=== PATIENT | male | born 1960 | race Caucasian/White ===

== ENCOUNTER → 2017-10-05 | Outpatient (CLI) | payer BC, SELFPAY | PROVIDERS: Family Provider Family Medicine; Visit Provider Family Medicine | DX: I10 Essential (primary) hypertension (principal) | CPT/HCPCS: 73030 ==

== ENCOUNTER 2025-05-30 09:06 | Day surgery (SDC) | payer MEDICARE, SELFPAY ==
--- NOTE | 2025-05-30 08:24 | P.HP_ITS ---
HPI HPI HPI: Patient is a 64-year-old male who presents for colonoscopy. He underwent initial screening colonoscopy with Dr. Kearney on 11/19/18. At that time he had reported some occasional spotting of blood on the tissue from internal hemorrhoids. No family history of colon cancer. Colonoscopy revealed dimin utive colon polyps x 3. Pathology revealed fragments of tubular adenoma in the ascending colon at which point 2 polyps were removed and tubular adenoma in the sigmoid colon. 5-year follow-up colonoscopy was recommended. . [facility] Disclaimer: The information contained in this section may have been updated after the patient was seen, as this information can be updated by other users. Medical History Anxiety HTN (hypertension) Surgical History (Updated 05/30/25 @ 09:26 by Suzette Argeullo RN) History of hernia repair Family History (Updated 05/30/25 @ 09:26 by Suzette Arguello RN) Other Family history of acute congestive heart failure Social History (Updated 05/30/25 @ 09:46 by Carlos Epstein CRNA) Smoking Status: Never smoker alcohol intake: current substance use type: denies use current occupational status: retired Travel in the last 8 weeks?: None caffeine: Yes Have you lived/traveled outside [place] in past 30 days?: No Contact w/someone who lives/traveled outside [place] past 30 days?: No Exposure to someone with infectious disease in past 14 days?: No Do you have a fever (greater than 100.4 F or 38 C)?: No Have you tested positive for COVID-19?: No Exposed to someone with COVID-19 in past 14 days?: No Do you have a sore throat?: No Do you have a cough?: No Do you have any weakness?: No Are you experiencing any nausea/vomitting?: No Do you have any diarrhea?: No Are you experiencing any unusual bleeding?: No Do you have any muscle aches/pain?: No Do you have any abdominal pain?: No Are you experiencing loss of taste or smell?: No Meds Home Medications and Allergies Home Medications ?Medication ?Instructions ?Recorded ?Confirmed ?Type lisinopril 20 1 tab PO DAILY 05/30/2505/16 History mg-hydrochlorothiazide 12.5 mg tablet sertraline 100 mg tablet (Zoloft) 100 mg PO DAILY 05/1605/30/25 History New Prescriptions to Start Prescriptions: Allergies Allergy/AdvReac Type Severity Reaction Status Date / Time No Known Allergies Allergy Verified 05/30/25 09:27 Exam Constitutional Constitutional: no acute distress *Routine HEENT Exam Head: Present normocephalic Eye: Present EOMI and PERRL ENT: Present mucous membranes moist *Routine Neck Exam Neck: Present supple; Absent lymphadenopathy *Routine Respiratory Exam Respiratory: Present CTA bilaterally *Routine Cardiovascular Exam Cardiovascular: Present RRR *Routine Abdominal Exam Abdominal: Present soft and normoactive bowel sounds; Absent tenderness *Routine Rectal Exam Rectal:: deferred *Routine Genitalia Exam Genitalia:: deferred *Routine Extremities Exam Extremities: Absent cyanosis, clubbing or edema *Routine Skin Exam Skin: Present warm; Absent rash *Routine Neurological Exam Neurological: Present alert and oriented X3 Assessment and Plan *Assessment and plan (1) Tubular adenoma of colon: Status: Acute Category: Medical Code(s): D12.6 - Benign neoplasm of colon, unspecified Plan Colonoscopy
[2025-05-30 09:20] VITALS: BMI 29.7
[2025-05-30] MEDS: LACTATED RINGERS 1000ML 1,000 ML 50 ML IV (09:23)
[2025-05-30 09:34] VITALS: BP 160/96; PULSE 71; RESP 17; TEMP 36.2; O2SAT 98
--- NOTE | 2025-05-30 09:46 | P.PNANES_ITS ---
[facility] Disclaimer: The information contained in this section may have been updated after the patient was seen, as this information can be updated by other users. Medical History Anxiety HTN (hypertension) Surgical History (Updated 05/30/25 @ 09:26 by Suzette Arguello RN) History of hernia repair Family History (Updated 05/30/25 @ 09: by Suzette Arguello RN) Other Family history of acute congestive heart failure Social History (Updated 05/30/25 @ : by Suzette Arguello RN) Smoking Status: Never smoker alcohol intake: current substance use type: denies use current occupational status: retired Travel in the last 8 weeks?: None caffeine: Yes [facility] Anesthesia Checklist Patient Identification Patient Identification: Arm Band Structural Data Admitted From: Home Planned Operative Procedure/s: Colonoscopy Consent for Planned Operative Procedure(s) Verified: Yes Verified Documents: Surgical Consent and History and Physical NPO Status Verified Time NPO: 00:00 Additional verifications Anesthesia Reactions: No Airway Assessment Mallampati Score:: Class II C-Spine Mobility Assessed: Yes TMJ Mobility Assessed: Yes Dentition: Good Dentition Neurological Assessment Level of Consciousness: Awake, Alert and Appropriate Anesthesia Plan Anesthesia Risk discussed: Yes Anesthesia Plan: Verified ASA Class: II Anesthesia Type: MAC
[2025-05-30 11:07] VITALS: BP 95/60; PULSE 71; RESP 15; TEMP 36.2; O2SAT 92
--- NOTE | 2025-05-30 11:07 | P.PCN_ITS ---
Procedure: Date: 05/30/25 Patient Date of :: 1960 Procedure Performed:: Colonoscopy to terminal ileum with polypectomy using snare Indications:: Patient is a 64-year-old male who presents for colonoscopy. He underwent initial screening colonoscopy with Dr. Kearney on 11/19/18. At that time he had reported some occasional spotting of blood on the tissue from internal hemorrhoids. No family history of colon cancer. Colonoscopy revealed diminutive colon polyps x 3. Pathology revealed fragments of tubular adenoma in the ascending colon at which point 2 polyps were removed and tubular adenoma in the sigmoid colon. 5-year follow-up colonoscopy was recommended. Performing Provider:: French Joseph MD Referring Provider:: Calos Jackson MD Sedation:: MAC sedation Procedure:: Patient history was obtained and appropriate physical examination was performed. Patient's medications and allergies were reviewed. Informed consent was obtained after explaining the benefits, alternatives, and risks of the procedure including, but not limited to, bleeding, perforation, missed lesions, and adverse reaction to anesthesia medications. Patient was transported to endoscopy procedure room. Patient was connected to monitoring devices. Throughout the procedure the patient's blood pressure, pulse, and oxygen saturations were monitored continuously. Patient identification and planned procedure were verified by the staff. Patient was positioned in lateral decubitus position. Digital anorectal exam was performed. Variable stiffness Olympus colonoscope was inserted and advanced under direct visualization to the cecum. Adequacy of the colonic preparation was noted. The colonoscope was advanced a short distance into the terminal ileum. The colonoscope was then slowly withdrawn while carefully examining the color, texture, anatomy, and integrity of the mucosoa circumferentially. Within the rectum retroflexion was performed. Colonoscope was then withdrawn. Impression: Colonic preparation was suboptimal. There was particulate liquid stool throughout the colon. With extremely high volume trans colonoscopic irrigation and suctioning this was able to be cleared for the most part. However, in the cecum there was pasty stool adherent to the colon and this was unable to be fully cleared. Careful surveillance was carried out as the colonoscope was withdrawn. In the transverse colon there was a small adenomatous appearing polyp removed with cold snare. In the descending colon there was a tiny polyp removed with cold snare. In the rectosigmoid region there was a probable hyperp lastic appearing polyp removed with cold snare. . Findings:: Suboptimal fair prep at best Polyps as noted Recommendations:: Given suboptimal preparation recommend repeat colonoscopy with maximum prep within a year. Complications:: None immediately apparent Estimated blood obtained (mL): 1 Colonoscopy Component Colonoscopy Component Was a colonoscopy performed during today's procedure?: Yes Recommended follow up colonoscopy of at least 10 years?: No If no, follow up colonoscopy recommended in ___ years?: 1 Reason for not recommending >/= 10 yr follow-up interval?: Prep
[2025-05-30 11:17] VITALS: BP 107/63; PULSE 71; RESP 17; TEMP 36.2; O2SAT 97
[2025-05-30 11:27] VITALS: BP 119/77; PULSE 61; RESP 18; TEMP 36.2; O2SAT 96
[2025-05-30 11:37] VITALS: BP 109/74; PULSE 54; RESP 17; TEMP 36.2; O2SAT 96
== END 2025-05-30 11:43 | disposition home or self-care (01) ==
PROVIDERS: PCP Family Medicine; Visit Provider Surgery
PROC: 0DJD8ZZ Inspection of Lower Intestinal Tract, Via Natural or Artificial Opening Endoscopic (ICD-10-PCS; CPT 45385; principal; 2025-05-30 09:30)
DX: Z12.11 Encounter for screening for malignant neoplasm of colon (principal); D12.3 Benign neoplasm of transverse colon; D12.4 Benign neoplasm of descending colon; K63.5 Polyp of colon; Z86.0101 Personal history of adenomatous and serrated colon polyps; I10 Essential (primary) hypertension; F41.9 Anxiety disorder, unspecified; Z79.899 Other long term (current) drug therapy
CPT/HCPCS: 45385; J2003; J2704; J7120

== ENCOUNTER 2025-06-13 13:59 | Observation (INO) | payer MEDICARE, SELFPAY ==
[2025-06-13] VITALS (7 sets, daily range): BP systolic 112–158; BP diastolic 70–98; PULSE 60–71; RESP 14–16; TEMP 36.7–36.9; O2SAT 95–98; BMI 30.7; BMI 30.3
--- OUTSIDE RECORDS SUMMARY | 2025-06-13 14:12 | XMS_ITS ---
Author Organization Unknown Vital Signs BpStanding BpSitting BpSupine Date Temperature HeartRate Weight Hei ght Spo2 Respiration Bmi HeadCircumference FieldCount TimeRecorded NeckCircumferen ce WaistCircumference Pulse 130/80 01/08 00:00 :00 97.8 84 169,0 5,8 25.8 8 6 05/22/2025 13:30:00 122/80 06/26 00:00 :00 98.0 80 173,0 5,8 26.5 0 6 05/22/2025 13:30:00 116/78 12/24 00:00 :00 98.2 76 192,3.2 0 5,8 29.4 4 6 05/22/2025 13:30:00 130/80 06/26 00:00 :00 98.1 80 189,0 5,8 28.9 5 6 05/22/2025 13:45:00 130/72 12/26 00:00 :00 97.9 70 197,0 5,8 30.1 7 6 05/22/2025 13:30:00 132/74 06/27 00:00 :00 98.0 189,9.6 0 5,8 29.0 4 5 05/22/2025 13:30:00
--- NOTE | 2025-06-13 14:27 | ED_ITS ---
<Statement entered by Gianfranco Goldstein DO - 06/14/25 08:35> I was consulted by the ROSETTA, and we discussed the complexity of problems being addressed. I approved the treatment and management plan for this patient's care in the emergency department, thus performing a substantive portion of the medical decision making. Agree with ROSETTA evaluation and assessment above. Also agree with Dr. Holder's assessment and evaluation. Patient presented with lower GI bleeding and recommendations for CT scan by his primary care physician. He underwent CT scan which showed possibility of upper GI hemorrhage. GI was consulted and ultimately recommended the patient to be admitted to the hospital for serial monitoring. Patient was admitted in stable condition. Gianfranco Goldstein DO Discharge Plan Disposition Patient Disposition: Admitted Clinical Impressions Clinical Impression: GI bleed Discharge ED Provider: Gianfranco Goldstein General Adult HPI <Nicci Judd (ED), [employer] - Last Filed: 06/13/25 18:32> General Chief complaint: GI Bleed Stated complaint: blood in stool, Painful BM-sent by Dr. Jackson Time Seen by Provider: 06/13/25 14:03 Mode of Arrival: Ambulatory Source of Information: Patient Description of Symptoms (Recalled from ER Triage Doc. by RN): patient states he had a colonoscopy 2 weeks ago and on monday he began having bright red bloody stool. he reports he has history of a internal hemroid. dr jackson is his pcp History of Present Illness HPI narrative: 64-year-old male presents to the ED today for complaint of bright red blood from a hemorrhoid. He says this is an internal hemorrhoid and he saw Dr. Jackson for this today. He says he also has some rectal pain and dark stool since Monday. He says that he had a colonoscopy 2 weeks ago and has not had the results of this yet. Patient denies fevers, chills, nausea or vomiting. He has had little rectal pain with bowel movements. He he also claims he has had a lot of gas. Patient appears well and is sitting in the chair on his phone. Related Data Home Medications ?Medication ?Instructions ?Recorded ?Confirmed lisinopril 20 1 tab PO DAILY 05/30/2505/17 mg-hydrochlorothiazide 12.5 mg tablet sertraline 100 mg tablet (Zoloft) 100 mg PO DAILY 05/1606/13/25 Allergies Allergy/AdvReac Type Severity Reaction Status Date / Time No Known Allergies Allergy Verified 05/30/25 09:27 PFSH <Nicci Judd (ED), [employer] - Last Filed: 06/13/25 18:32> PFSH Disclaimer: The information contained in this section may have been updated after the patient was seen, as this information can be updated by other users. Medical History (Updated 06/13/25 @ 17:58 by Evelyne Mott RN) Anxiety HTN (hypertension) Surgical History History of hernia repair Family History Other Family history of acute congestive heart failure Social History (Updated 06/13/25 @ 17:57 by Sabrina Gill RN) Smoking Status: Never smoker alcohol intake: current substance use type: denies use current occupational status: retired Travel in the last 8 weeks?: None caffeine: Yes Have you lived/traveled outside [place] in past 30 days?: No Contact w/someone who lives/traveled outside US past 30 days?: No Exposure to someone with infectious disease in past 14 days?: No Do you have a fever (greater than 100.4 F or 38 C)?: No Have you tested positive for COVID-19?: No Exposed to someone with COVID-19 in past 14 days?: No Do you have a sore throat?: No Do you have a cough?: No Do you have any weakness?: No Do you have any diarrhea?: No Are you experiencing any unusual bleeding?: No Do you have any muscle aches/pain?: No Do you have any abdominal pain?: No Are you experiencing loss of taste or smell?: No <Nicci Judd (ED), [employer] - Last Filed: 06/13/25 18:32> ROS Obtained: Yes Systems reviewed as appropriate & no additional complaints except as documented Constitutional Constitutional: Reports as per HPI Physical Exam <Nicci Judd (ED), [employer] - Last Filed: 06/13/25 18:32> General General appearance: alert and in no apparent distress Head Head exam: normocephalic Eye Eye exam: Present PERRL and EOMI ENT ENT exam: Present normal oropharynx and mucous membranes moist Neck Neck exam: Present full ROM and trachea midline Respiratory Respiratory exam: Present normal lung sounds bilaterally Cardiovascular Cardiovascular exam: Present regular rate, normal rhythm, normal heart sounds, +S1 and +S2 Abdominal Exam Abdominal exam: Present soft and normal bowel sounds Extremities Exam Extremities exam: Present normal inspection, full ROM and normal capillary refill Neurological Exam Neurological exam: Present alert, oriented X3 and normal gait Skin Skin exam: Present warm, dry and intact Medical Decision Making <Nicci Judd (ED), [employer] - Last Filed: 06/13/25 18:32> Medical Records Screening: Per USPSTF and CDC recommendations, given the prevalence of disease in our region, it is our hospital?s policy to screen for HIV and viral Hepatitis for all patients aged 18 and over and those with ongoing risk factors. Daniel Inquiry Pt receiving controlled substance: No Daniel was queried for this patient: No Vital Signs: 06/13/25 14:12 06/13/25 14:30 06/13/25 15:31 Temperature 98.5 F Temperature Source Oral Pulse Rate 65 Pulse Rate [Left Radial] 71 Respiratory Rate 16 Blood Pressure 133/84 121/78 Blood Pressure [Right Arm] 154/98 H Blood Pressure Mean 92 Blood Pressure Mean [Right Arm] 116 Blood Pressure Source Blood Pressure Source [Right Arm] Automatic Cuff Blood Pressure Position Blood Pressure Position [Right Arm] Sitting 02 Sat by Pulse Oximetry 98 96 Oxygen Delivery Method Room Air 06/13/25 16:00 06/13/25 17:23 06/13/25 17:39 Temperature 98.0 F Temperature Source Oral Pulse Rate 60 Pulse Rate [Left Radial] Respiratory Rate 16 Blood Pressure 115/75 149/70 H Blood Pressure [Right Arm] Blood Pressure Mean 84 Blood Pressure Mean [Right Arm] Blood Pressure Source Automatic Cuff Blood Pressure Source [Right Arm] Blood Pressure Position Sitting Blood Pressure Position [Right Arm] 02 Sat by Pulse Oximetry Oxygen Delivery Method Room Air Room Air Lab Data Lab Results 06/13/25 14:22: WBC 7.6, RBC 5.30, Hgb 15.3, Hct 43.1, MCV 81.3, MCH 28.9, MCHC 35.5 H, RDW 14.3, Plt Count 262, MPV 8.6, Neut % (Auto) 50.2, Lymph % (Auto) 36.9, [place] % (Auto) 9.9 H, Eos % (Auto) 1.7, Baso % (Auto) 0.8, Neut # (Auto) 3.8, Lymph # (Auto) 2.8, [place] # (Auto) 0.8, Eos # (Auto) 0.1, Baso # (Auto) 0.1, APTT 24.4, Sodium 137, Potassium 4.2, Chloride 104, Carbon Dioxide 26, Anion Gap 11.2, BUN 10, Creatinine 1.00, Estimated Creat Clear 90, Estimated GFR 75, Est GFR ( Amer) 91, Glucose 123 H, Calcium 9.8, Magnesium 1.6, Total Bilirubin 1.7 H, AST 24, ALT 15, Alkaline Phosphatase 80, Troponin I < 0.01, Total Protein 8.0, Albumin 4.9, Globulin 3.1, Albumin/Globulin Ratio 1.6, Lipase 91, HCV Ab TIFFANY w/Rflx PCR Qn Negative, HIV Ag/Ab Combo Qual Negative 06/13/25 14:42: PT 11.9, INR 1.08 06/13/25 14:44: Lactate 1.0 06/13/25 17:13: Troponin I < 0.01 06/13/25 21:31 06/13/25 21:31 Orders (Tests/Meds): ED MEDICATIONS Generic Name Dose Route Start Last Admin Trade Name Freq PRN Reason Stop Dose Admin Acetaminophen 650 mg 06/13/25 17:06 Acetaminophen 325mg Tab PO 07/13/25 17:05 Q6HP PRN Fever or Mild Pain (1-3) Sodium Chloride 1,000 mls @ 50 mls/hr 06/13/25 17:15 06/13/25 17:30 Sod Chlor 0.9% 1000ml Bag IV 07/13/25 17:14 50 mls/hr .Q20H LAVELLE Administration Pantoprazole Sodium 40 mg 06/13/25 21:00 06/13/25 20:26 Pantoprazole 40mg Vial IV 07/13/25 20:59 40 mg HS LAVELLE Administration Sodium Chloride 10 ml 06/13/25 14:15 06/13/25 20:26 Sodium Chloride 0.9% 10ml Vial IV 07/13/25 14:14 10 ml NEEDED PRN Administration dilute protonix Discontinued Medications Generic Name Dose Route Start Last Admin Trade Name Freq PRN Reason Stop Dose Admin Sodium Chloride 1,000 mls @ 999 mls/hr 06/13/25 14:15 06/13/25 15:44 Sod Chlor 0.9% 1000ml Bag IV 06/13/25 15:15 Infused .Q1H1M ONE Infusion Iopamidol 80 ml 06/13/25 15:02 06/13/25 15:13 Iopamidol-370 (76%);100ml Bottle IV 06/13/25 15:03 80 ml ONCE ONE Administration Ondansetron HCl 4 mg 06/13/25 17:06 06/13/25 17:27 Ondansetron 4mg Odt SL 06/13/25 17:07 4 mg ONCE ONE Administration Pantoprazole Sodium 40 mg 06/13/25 14:15 06/13/25 14:30 Pantoprazole 40mg Vial IV 06/13/25 14:16 40 mg ONCE ONE Administration Sodium Chloride 10 ml 06/13/25 15:02 06/13/25 15:13 Sodium Chloride 0.9% 10ml Syr (Rad Only) IV 06/13/25 15:03 10 ml ONCE ONE Administration Sodium Chloride 50 ml 06/13/25 15:02 06/13/25 15:12 0.9 % Sodium Chloride 50 Ml Vial IV 06/13/25 15:03 50 ml ONCE ONE Administration ORDERS Category Date Time Status CT angio abd/pel - GI Bleed Stat Cat Scan 06/13/25 14:34 Completed CBC [Complete Blood Count Auto Diff] Stat Lab 06/13/25 14:22 Completed CBC w/Auto Diff [Complete Blood Count Auto Diff] Stat Lab 06/13/25 21:31 Results Complete Blood Count Auto Diff AMLAB Lab 06/14/25 06:00 Ordered Comprehensive Metabolic Panel AMLAB Lab 06/14/25 06:00 Ordered Comprehensive Metabolic Panel Stat Lab 06/13/25 14:22 Completed Comprehensive Metabolic Panel Stat Lab 06/13/25 21:31 Completed HIV Combo Stat Lab 06/13/25 14:22 Completed Hemoglobin and Hematocrit Stat Lab 06/13/25 21:31 Results Hepatitis C Ab Qual. W/ RFX Stat Lab 06/13/25 14:22 Completed Lactic Acid Stat Lab 06/13/25 14:44 Completed Lipase Stat Lab 06/13/25 14:22 Completed Magnesium Stat Lab 06/13/25 14:22 Completed PT INR [Prothrombin Time INR] Stat Lab 06/13/25 14:42 Completed PTT [Activated Partial Thrombo Time] Stat Lab 06/13/25 14:22 Completed Trop I [Troponin I] Stat Lab 06/13/25 14:22 Completed Troponin I Q3H Lab 06/13/25 17:13 Completed Troponin I Q3H Lab 06/13/25 21:31 Completed Medical Decision Narrative: patient is a 64-year-old male presenting to the emergency department for evaluation of rectal pain and blood in his stool. Patient is hemodynamically stable and nontoxic-appearing upon arrival, afebrile. Differential diagnosis includes GI bleed, hemorrhoids, among others. Workup will be conducted with hematologic labs, specific imaging. Initial inventions include crystalloid bolus, analgesics. Initial workup reviewed by me [hematologic labs are remarkable for:]. [Imaging informally interpreted by me and remarkable for:] [Formal imaging read remarkable for:] Upon repeat evaluation [patient's pain is improved, appears better perfused, appears the same, appears worse, etc.]. Due to this [additional interventions, patient is appropriate for discharge, patient requires admission, etc.]. <Tramaine Holder MD - Last Filed: 06/14/25 00:01> Vital Signs: 06/13/25 14:12 06/13/25 14:30 06/13/25 15:31 Temperature 98.5 F Temperature Source Oral Pulse Rate 65 Pulse Rate [Left Radial] 71 Respiratory Rate 16 Blood Pressure 133/84 121/78 Blood Pressure [Right Arm] 154/98 H Blood Pressure Mean 92 Blood Pressure Mean [Right Arm] 116 Blood Pressure Source Blood Pressure Source [Right Arm] Automatic Cuff Blood Pressure Position Blood Pressure Position [Right Arm] Sitting 02 Sat by Pulse Oximetry 98 96 Oxygen Delivery Method Room Air 06/13/25 16:00 06/13/25 17:23 06/13/25 17:39 Temperature 98.0 F Temperature Source Oral Pulse Rate 60 Pulse Rate [Left Radial] Respiratory Rate 16 Blood Pressure 115/75 149/70 H Blood Pressure [Right Arm] Blood Pressure Mean 84 Blood Pressure Mean [Right Arm] Blood Pressure Source Automatic Cuff Blood Pressure Source [Right Arm] Blood Pressure Position Sitting Blood Pressure Position [Right Arm] 02 Sat by Pulse Oximetry Oxygen Delivery Method Room Air Room Air Lab Data Lab Results 06/13/25 14:22: WBC 7.6, RBC 5.30, Hgb 15.3, Hct 43.1, MCV 81.3, MCH 28.9, MCHC 35.5 H, RDW 14.3, Plt Count 262, MPV 8.6, Neut % (Auto) 50.2, Lymph % (Auto) 36.9, [place] % (Auto) 9.9 H, Eos % (Auto) 1.7, Baso % (Auto) 0.8, Neut # (Auto) 3.8, Lymph # (Auto) 2.8, [place] # (Auto) 0.8, Eos # (Auto) 0.1, Baso # (Auto) 0.1, APTT 24.4, Sodium 137, Potassium 4.2, Chloride 104, Carbon Dioxide 26, Anion Gap 11.2, BUN 10, Creatinine 1.00, Estimated Creat Clear 90, Estimated GFR 75, Est GFR ( Amer) 91, Glucose 123 H, Calcium 9.8, Magnesium 1.6, Total Bilirubin 1.7 H, AST 24, ALT 15, Alkaline Phosphatase 80, Troponin I < 0.01, Total Protein 8.0, Albumin 4.9, Globulin 3.1, Albumin/Globulin Ratio 1.6, Lipase 91, HCV Ab TIFFANY w/Rflx PCR Qn Negative, HIV Ag/Ab Combo Qual Negative 06/13/25 14:42: PT 11.9, INR 1.08 06/13/25 14:44: Lactate 1.0 06/13/25 17:13: Troponin I < 0.01 Orders (Tests/Meds): ED MEDICATIONS Generic Name Dose Route Start Last Admin Trade Name Yosefq PRN Reason Stop Dose Admin Acetaminophen 650 mg 06/13/25 17:06 Acetaminophen 325mg Tab PO 07/13/25 17:05 Q6HP PRN Fever or Mild Pain (1-3) Sodium Chloride 1,000 mls @ 50 mls/hr 06/13/25 17:15 06/13/25 17:30 Sod Chlor 0.9% 1000ml Bag IV 07/13/25 17:14 50 mls/hr .Q20H LAVELLE Administration Pantoprazole Sodium 40 mg 06/13/25 21:00 06/13/25 20:26 Pantoprazole 40mg Vial IV 07/13/25 20:59 40 mg HS LAVELLE Administration Sodium Chloride 10 ml 06/13/25 14:15 06/13/25 20:26 Sodium Chloride 0.9% 10ml Vial IV 07/13/25 14:14 10 ml NEEDED PRN Administration dilute protonix Discontinued Medications Generic Name Dose Route Start Last Admin Trade Name Freq PRN Reason Stop Dose Admin Sodium Chloride 1,000 mls @ 999 mls/hr 06/13/25 14:15 06/13/25 15:44 Sod Chlor 0.9% 1000ml Bag IV 06/13/25 15:15 Infused .Q1H1M ONE Infusion Iopamidol 80 ml 06/13/25 15:02 06/13/25 15:13 Iopamidol-370 (76%);100ml Bottle IV 06/13/25 15:03 80 ml ONCE ONE Administration Ondansetron HCl 4 mg 06/13/25 17:06 06/13/25 17:27 Ondansetron 4mg Odt SL 06/13/25 17:07 4 mg ONCE ONE Administration Pantoprazole Sodium 40 mg 06/13/25 14:15 06/13/25 14:30 Pantoprazole 40mg Vial IV 06/13/25 14:16 40 mg ONCE ONE Administration Sodium Chloride 10 ml 06/13/25 15:02 06/13/25 15:13 Sodium Chloride 0.9% 10ml Syr (Rad Only) IV 06/13/25 15:03 10 ml ONCE ONE Administration Sodium Chloride 50 ml 06/13/25 15:02 06/13/25 15:12 0.9 % Sodium Chloride 50 Ml Vial IV 06/13/25 15:03 50 ml ONCE ONE Administration ORDERS Category Date Time Status CT angio abd/pel - GI Bleed Stat Cat Scan 06/13/25 14:34 Completed CBC [Complete Blood Count Auto Diff] Stat Lab 06/13/25 14:22 Completed CBC w/Auto Diff [Complete Blood Count Auto Diff] Stat Lab 06/13/25 21:31 Results Complete Blood Count Auto Diff AMLAB Lab 06/14/25 06:00 Ordered Comprehensive Metabolic Panel AMLAB Lab 06/14/25 06:00 Ordered Comprehensive Metabolic Panel Stat Lab 06/13/25 14:22 Completed Comprehensive Metabolic Panel Stat Lab 06/13/25 21:31 Completed HIV Combo Stat Lab 06/13/25 14:22 Completed Hemoglobin and Hematocrit Stat Lab 06/13/25 21:31 Results Hepatitis C Ab Qual. W/ RFX Stat Lab 06/13/25 14:22 Completed Lactic Acid Stat Lab 06/13/25 14:44 Completed Lipase Stat Lab 06/13/25 14:22 Completed Magnesium Stat Lab 06/13/25 14:22 Completed PT INR [Prothrombin Time INR] Stat Lab 06/13/25 14:42 Completed PTT [Activated Partial Thrombo Time] Stat Lab 06/13/25 14:22 Completed Trop I [Troponin I] Stat Lab 06/13/25 14:22 Completed Troponin I Q3H Lab 06/13/25 17:13 Completed Troponin I Q3H Lab 06/13/25 21:31 Completed Medical Decision Narrative: patient is a 64-year-old male presenting to the emergency department for evaluation of rectal pain and blood in his stool. Patient is hemodynamically stable and nontoxic-appearing upon arrival, afebrile. Differential diagnosis includes GI bleed, hemorrhoids, among others. Workup will be conducted with hematologic labs, specific imaging. Initial inventions include crystalloid bolus, analgesics. Tramaine Holder: I was consulted by the ROSETTA, and we discussed the complexity of the problems being addressed. I approved the treatment and management plan for this patient's care in the emergency department, thus performing a substantive portion of the medical decision making. Patient presented for evaluation of a GI bleed workup reviewed by me hematology labs are nonactionable no significant leukocytosis no transfusable anemia no ALISTAIR or critical electrolyte abnormality no discordant elevation of BUN to creatinine ratio initial troponin undetectably low. CTA abdomen pelvis has questionable GI bleed in the distal duodenum and proximal jejunum. The case was discussed with Dr. [place] by Nicci Judd and he recommends close observation. Patient will be admitted for continued evaluation at this time. Critical Care <Nicci Judd (ED), [employer] - Last Filed: 06/13/25 18:32> Critical Care Time Critical Care Time: No
[2025-06-13] MEDS: SODIUM CHLORIDE 0.9% 10ML VIAL 10 ML IV ×2 (14:30→20:26)
[2025-06-13] MEDS: 0.9 % SODIUM CHLORIDE 1000ML 1,000 ML 999 ML IV (14:30)
[2025-06-13] MEDS: PANTOPRAZOLE 40MG VIAL 40 MG IV ×2 (14:30→20:26)
--- NOTE | 2025-06-13 14:33 | ECG_ITS ---
APPROVED REPORT Exam: Resting ECG HR:63 bpm ECG Measurements Heart Rate 63 AXES PA 186 P 52 QRSd 90 QRS -12 QT 359 T 25 QTc 367 Conclusion Sinus rhythm Left axis Normal intervals NO STEMI Electronically signed by : Gianfranco Goldstein, 06/13/2025 16:36:10
[2025-06-13 14:34] LABS: Hematocrit 43.1 % (42.0-52.0); Hemoglobin 15.3 g/dL (14.1-18.0); Immature Granulocytes % 0.5 %; Mean Corpuscular HGB Conc 35.5 g/dL (31.8-35.4); Mean Corpuscular Hemoglobin 28.9 pg (27.0-31.2); Mean Corpuscular Volume 81.3 fl (80-94); Nucleated Red Blood Cells % 0 %; Platelet Count 262 K/mm3 (142-424); Red Blood Count 5.30 M/mm3 (4.60-6.20); Red Cell Distribution Width-SD 41.6 fL; White Blood Count 7.6 K/mm3 (4.8-10.8)
--- NOTE | 2025-06-13 14:34 | CT_ITS ---
FINAL REPORT TECHNIQUE: Thin section axial images were obtained through the abdomen and pelvis before and after contrast injection per CT angiogram protocol. Portal venous phase imaging was also obtained. Multiplanar reconstruction images were obtained from the axial data. This exam was performed with techniques to keep radiation dose as low as reasonably achievable. This includes automated exposure control, adjustment of the MA and KVP, and iterative reconstruction technique. CLINICAL HISTORY: bleeding FINDINGS: CTA ABDOMEN AND CTA PELVIS CTA: No abdominal aortic aneurysm or aortic dissection. The celiac axis, superior mesenteric artery, and inferior mesenteric artery are patent without stenosis. The renal arteries are patent. An accessory left renal artery is noted. The common iliac arteries and visualized portions of the internal and external iliac arteries are patent. No significant stenosis. There is an increasing density within the lumen of the distal duodenum and proximal jejunum over the 3 phases of imaging. An upper GI bleed cannot be excluded. There are no other areas of concerning GI bleed. NONVASCULAR: Hypodense lesions in the liver are favored to represent cysts. The gallbladder is present. The spleen is mildly enlarged at 14 cm. Adrenal glands and pancreas are unremarkable. There is no renal stone or hydronephrosis. There is a right renal cyst. There is no evidence of bowel obstruction. The appendix is normal. No lymphadenopathy or free fluid. No acute osseous abnormality. IMPRESSION: Increasing density within the intraluminal contents of the distal duodenum and proximal most jejunum over the 3 phases of this exam. An upper GI source of hemorrhage cannot be excluded. Consider endoscopy for further evaluation. No evidence of abdominal aortic aneurysm or dissection. No significant arterial stenosis. Reviewed, Interpreted and Dictated by Keyla Frnacisco MD Transcribed by Rachel Mccann Authenticated and [facility]
[2025-06-13 14:44] LABS: Albumin Level 4.9 g/dl (3.5-5.0); Chloride 104 mmol/L (98-107); Potassium 4.2 mmoL/L (3.5-5.1); Sodium 137 mmol/L (136-145)
[2025-06-13 14:47] LABS: Alanine Aminotransferase 15 U/L (12-78); Albumin/Globulin Ratio 1.6 (1.1-1.8); Alkaline Phosphatase 80 U/L (38-126); Anion Gap 11.2 mEq/L (5-15); Aspartate Amino Transferase 24 U/L (17-59); Bilirubin,Total 1.7 mg/dl (0.2-1.3); Blood Urea Nitrogen 10 mg/dl (9-20); Calcium 9.8 mg/dl (8.4-10.2); Carbon Dioxide 26 mmol/L (22.0-30.0); Creatinine Clearance Estimated 90 mL/min (50-200); Creatinine,Serum 1.00 mg/dl (0.66-1.25); Estimated Glomerular Filt Rate 75 ml/min (>60); GFR (African American) 91 ML/MIN (>60); Globulin 3.1 g/dL (1.3-3.2); Glucose 123 mg/dl (74-100); Lipase 91 U/L (23-300); Magnesium 1.6 mg/dl (1.6-2.3); Total Protein,Serum 8.0 g/dl (6.3-8.2)
[2025-06-13 14:50] LABS: Activated Partial Thrombo Time 24.4 seconds (22.8-30.6)
[2025-06-13 15:00] LABS: Troponin I < 0.01 ng/ml (0.00-0.034)
[2025-06-13 15:09] LABS: INR 1.08 (0.9-1.1); Prothrombin Time 11.9 seconds (10.1-12.5)
[2025-06-13] MEDS: 0.9 % SODIUM CHLORIDE 50 ML VIAL IV (15:12)
[2025-06-13] MEDS: SODIUM CHLORIDE 0.9% 10ML SYR (RAD ONLY) 10 ML IV (15:13)
[2025-06-13] MEDS: IOPAMIDOL-370 (76%);100ML BOTTLE 80 ML IV (15:13)
--- NOTE | 2025-06-13 16:34 | PC.NURSE ---
ELDER ON PHONE WITH DR OTERO
--- NOTE | 2025-06-13 17:06 | PC.NURSE ---
HOUSE CALLED FOR BED
--- NOTE | 2025-06-13 17:06 | PC.NURSE ---
belt and link assembly supervisor contacted regarding bed assignment
[2025-06-13] MEDS: ONDANSETRON 4MG ODT 4 MG SL (17:27)
[2025-06-13] MEDS: 0.9 % SODIUM CHLORIDE 1000ML 1,000 ML 50 ML IV (17:30)
[2025-06-13 17:47] LABS: Troponin I < 0.01 ng/ml (0.00-0.034)
--- NOTE | 2025-06-13 18:00 | PC.NURSE ---
arrived by w/c from ED
[2025-06-13 18:23] LABS: Hepatitis C Ab Qual. W/ RFX NEGATIVE (Negative)
--- NOTE | 2025-06-13 18:25 | PC.NURSE ---
new admit @ 1800. pt able to ambulate independently. tolerating PO intake with no complaints of n/v. no complaints of pain. reports bright red blood in stool since monday. no needs at this time. call light within reach.
[2025-06-13 21:55] LABS: Hematocrit 35.7 % (42.0-52.0); Immature Granulocytes % 0.5 %; Mean Corpuscular HGB Conc 35.3 g/dL (31.8-35.4); Mean Corpuscular Hemoglobin 29.0 pg (27.0-31.2); Mean Corpuscular Volume 82.3 fl (80-94); Nucleated Red Blood Cells % 0 %; Platelet Count 207 K/mm3 (142-424); Red Blood Count 4.34 M/mm3 (4.60-6.20); Red Cell Distribution Width-SD 42.5 fL; White Blood Count 8.1 K/mm3 (4.8-10.8)
[2025-06-13 22:15] LABS: Alanine Aminotransferase 13 U/L (12-78); Albumin Level 3.5 g/dl (3.5-5.0); Albumin/Globulin Ratio 1.4 (1.1-1.8); Alkaline Phosphatase 62 U/L (38-126); Anion Gap 11.6 mEq/L (5-15); Aspartate Amino Transferase 23 U/L (17-59); Bilirubin,Total 1.3 mg/dl (0.2-1.3); Blood Urea Nitrogen 9 mg/dl (9-20); Calcium 8.0 mg/dl (8.4-10.2); Carbon Dioxide 22 mmol/L (22.0-30.0); Chloride 107 mmol/L (98-107); Creatinine Clearance Estimated 89 mL/min (50-200); Creatinine,Serum 1.00 mg/dl (0.66-1.25); Estimated Glomerular Filt Rate 75 ml/min (>60); GFR (African American) 91 ML/MIN (>60); Globulin 2.5 g/dL (1.3-3.2); Glucose 149 mg/dl (74-100); Potassium 3.6 mmoL/L (3.5-5.1); Sodium 137 mmol/L (136-145); Total Protein,Serum 6.0 g/dl (6.3-8.2)
[2025-06-13 22:27] LABS: Troponin I < 0.01 ng/ml (0.00-0.034)
[2025-06-14 00:12] LABS: Hemoglobin 12.4 g/dL (14.1-18.0)
[2025-06-14 04:00] VITALS: BP 122/60; PULSE 63; RESP 12; TEMP 36.9; O2SAT 98; BMI 30.6
--- NOTE | 2025-06-14 05:10 | PC.NURSE ---
Pt. was admitted last night for possible GI bleed. Pt. has c/o bright red blood in stool since Monday. Pt. has history of internal hemorrhoids. Pt. had a colonscopy 2 weeks ago. Pt. was admitted for observation of Hgb and Hct. Pt. is alert and orientated x 4. Pt. is on room air. Pt. denies pain,nausea, vomiting, light headedness, dizziness, shortness of breath. Pt is on IV fluids . Pt. has been sleeping on and off this shift. Pt. up independently to bathroom . Pt. has been on clear liquid diet. c/o feeling hungry. Pt. doing well this shift. Personal items and call ochoa in reach. Bed in low and locked position. Safety measures in place.
[2025-06-14 06:50] LABS: Hematocrit 35.3 % (42.0-52.0); Hemoglobin 12.3 g/dL (14.1-18.0); Immature Granulocytes % 0.4 %; Mean Corpuscular HGB Conc 34.8 g/dL (31.8-35.4); Mean Corpuscular Hemoglobin 28.9 pg (27.0-31.2); Mean Corpuscular Volume 82.9 fl (80-94); Nucleated Red Blood Cells % 0 %; Platelet Count 207 K/mm3 (142-424); Red Blood Count 4.26 M/mm3 (4.60-6.20); Red Cell Distribution Width-SD 43.1 fL; White Blood Count 7.5 K/mm3 (4.8-10.8)
[2025-06-14 07:48] LABS: Alanine Aminotransferase 11 U/L (12-78); Albumin Level 3.5 g/dl (3.5-5.0); Albumin/Globulin Ratio 1.3 (1.1-1.8); Alkaline Phosphatase 62 U/L (38-126); Anion Gap 11.1 mEq/L (5-15); Aspartate Amino Transferase 18 U/L (17-59); Bilirubin,Total 1.4 mg/dl (0.2-1.3); Blood Urea Nitrogen 8 mg/dl (9-20); Calcium 8.2 mg/dl (8.4-10.2); Carbon Dioxide 25 mmol/L (22.0-30.0); Chloride 106 mmol/L (98-107); Creatinine Clearance Estimated 82 mL/min (50-200); Creatinine,Serum 1.10 mg/dl (0.66-1.25); Estimated Glomerular Filt Rate 67 ml/min (>60); GFR (African American) 81 ML/MIN (>60); Globulin 2.6 g/dL (1.3-3.2); Glucose 99 mg/dl (74-100); Potassium 4.1 mmoL/L (3.5-5.1); Sodium 138 mmol/L (136-145); Total Protein,Serum 6.1 g/dl (6.3-8.2)
[2025-06-14 08:12] VITALS: BP 127/76; PULSE 61; RESP 16; TEMP 36.4; O2SAT 97
--- NOTE | 2025-06-14 08:14 | P.HPDS_ITS ---
General Admission date:: 06/13/25 Discharge date: 06/14/25 *Admission Date: 06/13/25 *Chief complaint: Blood in stool *History of present illness: Mr. Garzon is a 64 year old patient of [facility] who presented to [facility] ER yesterday afternoon with complaints of bloody bowel movements for the past 5 days. He had a screening colonoscopy about 2 weeks ago and had several polyps removed. He states he fell well after the colonoscopy but then started noticing blood in stool. He has had minimal abdominal pain. He has not previously had any of these symptoms. [facility] Disclaimer: The information contained in this section may have been updated after the patient was seen, as this information can be updated by other users. Medical History (Updated 06/14/25 @ 08:22 by Calos Jackson MD) Colon polyps Anxiety HTN (hypertension) Surgical History (Updated 06/14/25 @ 08:17 by Calos Jackson MD) History of colonoscopy History of hernia repair Family History Family history of acute congestive heart failure Social History Smoking Status: Never smoker alcohol intake: current substance use type: denies use current occupational status: retired Travel in the last 8 weeks?: None caffeine: Yes Have you lived/traveled outside US in past 30 days?: No Contact w/someone who lives/traveled outside US past 30 days?: No Exposure to someone with infectious disease in past 14 days?: No Do you have a fever (greater than 100.4 F or 38 C)?: No Have you tested positive for COVID-19?: No Exposed to someone with COVID-19 in past 14 days?: No Do you have a sore throat?: No Do you have a cough?: No Do you have any weakness?: No Do you have any diarrhea?: No Are you experiencing any unusual bleeding?: No Do you have any muscle aches/pain?: No Do you have any abdominal pain?: No Are you experiencing loss of taste or smell?: No Other Medical History Have you received the Flu Vaccine for this season: No Have you received the Pneumonia Vaccine: No Review of Systems Constitutional Constitutional: Denies chills and Denies fever(s) ENT Ears, Nose, Mouth, and Throat: Denies dizziness *Cardiovascular Cardiovascular: Denies chest pain and Denies dyspnea *Respiratory Respiratory: Denies dyspnea *Gastrointestinal Gastrointestinal: Reports as per HPI *Genitourinary Genitourinary: Denies difficulty urinating *Musculoskeletal Musculoskeletal: Denies arthralgias *Neurologic Neurologic: Denies dizziness Exam Data for Last 24 hours Vital signs and Labs for Last 24 Hours: Temp Pulse Resp BP Pulse Ox O2 Del Method 98.5 F 63 12 122/60 98 Room Air 06/14/25 04:00 06/14/25 04:00 06/14/25 04:00 06/14/25 04:00 06/14/25 04:00 06/14/25 06:47 Laboratory Results - last 24 hr 06/13/25 14:22: WBC 7.6, RBC 5.30, Hgb 15.3, Hct 43.1, MCV 81.3, MCH 28.9, MCHC 35.5 H, RDW 14.3, Plt Count 262, MPV 8.6, Neut % (Auto) 50.2, Lymph % (Auto) 36.9, [place] % (Auto) 9.9 H, Eos % (Auto) 1.7, Baso % (Auto) 0.8, Neut # (Auto) 3.8, Lymph # (Auto) 2.8, [place] # (Auto) 0.8, Eos # (Auto) 0.1, Baso # (Auto) 0.1, APTT 24.4, Sodium 137, Potassium 4.2, Chloride 104, Carbon Dioxide 26, Anion Gap 11.2, BUN 10, Creatinine 1.00, Estimated Creat Clear 90, Estimated GFR 75, Est GFR ( Amer) 91, Glucose 123 H, Calcium 9.8, Magnesium 1.6, Total Bilirubin 1.7 H, AST 24, ALT 15, Alkaline Phosphatase 80, Troponin I < 0.01, Total Protein 8.0, Albumin 4.9, Globulin 3.1, Albumin/Globulin Ratio 1.6, Lipase 91, HCV Ab TIFFANY w/Rflx PCR Qn Negative, HIV Ag/Ab Combo Qual Negative 06/13/25 14:42: PT 11.9, INR 1.08 06/13/25 14:44: Lactate 1.0 06/13/25 17:13: Troponin I < 0.01 06/13/25 21:31: WBC 8.1, RBC 4.34 L, Hgb 12.4 L D, Hct 35.7 L, MCV 82.3, MCH 29.0, MCHC 35.3, RDW 14.3, Plt Count 207, MPV 8.9, Neut % (Auto) 57.4, Lymph % (Auto) 31.4, [place] % (Auto) 9.1, Eos % (Auto) 1.0, Baso % (Auto) 0.6, Neut # (Auto) 4.6, Lymph # (Auto) 2.5, [place] # (Auto) 0.7, Eos # (Auto) 0.1, Baso # (Auto) 0.1, Sodium 137, Potassium 3.6, Chloride 107, Carbon Dioxide 22, Anion Gap 11.6, BUN 9, Creatinine 1.00, Estimated Creat Clear 89, Estimated GFR 75, Est GFR ( Amer) 91, Glucose 149 H D, Calcium 8.0 L, Total Bilirubin 1.3, AST 23, ALT 13, Alkaline Phosphatase 62, Troponin I < 0.01, Total Protein 6.0 L, Albumin 3.5 D, Globulin 2.5, Albumin/Globulin Ratio 1.4 06/14/25 06:20: WBC 7.5, RBC 4.26 L, Hgb 12.3 L, Hct 35.3 L, MCV 82.9, MCH 28.9, MCHC 34.8, RDW 14.5, Plt Count 207, MPV 8.9, Neut % (Auto) 48.4, Lymph % (Auto) 38.6, [place] % (Auto) 9.9 H, Eos % (Auto) 2.0, Baso % (Auto) 0.7, Neut # (Auto) 3.6, Lymph # (Auto) 2.9, [place] # (Auto) 0.7, Eos # (Auto) 0.2, Baso # (Auto) 0.1, Sodium 138, Potassium 4.1, Chloride 106, Carbon Dioxide 25, Anion Gap 11.1, BUN 8 L, Creatinine 1.10, Estimated Creat Clear 82, Estimated GFR 67, Est GFR ( Amer) 81, Glucose 99 D, Calcium 8.2 L, Total Bilirubin 1.4 H, AST 18, ALT 11 L, Alkaline Phosphatase 62, Total Protein 6.1 L, Albumin 3.5, Globulin 2.6, Albumin/Globulin Ratio 1.3 I & O for Last 24 hours: Intake & Output 06/11/25 06/12/25 06/13/25 06/14/25 23:59 23:59 23:59 23:59 Intake Total 1240 / 1740 500 / 500 Output Total 0 / 0 250 / 250 Balance 1240 / 1740 250 / 250 Weight 188 lb 2 oz 190 lb 11.2 oz Constitutional Constitutional: no acute distress *Routine HEENT Exam Head: Present normocephalic Eye: Present EOMI and PERRL ENT: Present mucous membranes moist *Routine Neck Exam Neck: Present supple; Absent lymphadenopathy *Routine Respiratory Exam Respiratory: Present CTA bilaterally *Routine Cardiovascular Exam Cardiovascular: Present RRR *Routine Abdominal Exam Abdominal: Present soft and normoactive bowel sounds; Absent tenderness *Routine Rectal Exam Rectal:: deferred *Routine Genitalia Exam Genitalia:: deferred *Routine Extremities Exam Extremities: Absent cyanosis, clubbing or edema *Routine Skin Exam Skin: Present warm; Absent rash *Routine Neurological Exam Neurological: Present alert and oriented X3 Meds Home Medications and Allergies Home Medications ?Medication ?Instructions ?Recorded ?Confirmed ?Type lisinopril 20 1 tab PO DAILY 05/30/2505/17 History mg-hydrochlorothiazide 12.5 mg tablet sertraline 100 mg tablet (Zoloft) 100 mg PO DAILY 05/1606/13/25 History pantoprazole 40 mg tablet,delayed 40 mg PO BID #60 tab s 06/14/25 Rx release (Protonix) New Prescriptions to Start Prescriptions: pantoprazole [Protonix] Calos Jackson Allergies Allergy/AdvReac Type Severity Reaction Status Date / Time No Known Allergies Allergy Verified 05/30/25 09:27 Hospital Course Hospital Course Hospital Course: Patient was admitted to [facility] for further monitoring. He was given Protonix. His Hg dropped 3 points from 15 to 12, repeat 6 hours later was still 12. He had no further bowel movements. He was hungry and was fed a full liquid diet, which he tolerated. Dr. Kearney was contacted by the ER staff and he recommended outpatient EGD next week if patient stabilized. Abdominal CTA showed a likely upper GI source of bleeding. Results Data Completed and Pending Labs on day of discharge: Labs from last 24 hours 06/14/25 06/13/25 06/13/25 06:20 21:31 17:13 WBC 7.5 8.1 RBC 4.26 L 4.34 L Hgb 12.3 L 12.4 L D Hct 35.3 L 35.7 L MCV 82.9 82.3 MCH 28.9 29.0 MCHC 34.8 35.3 RDW 14.5 14.3 Plt Count 207 207 MPV 8.9 8.9 Neut % (Auto) 48.4 57.4 Lymph % (Auto) 38.6 31.4 [place] % (Auto) 9.9 H 9.1 Eos % (Auto) 2.0 1.0 Baso % (Auto) 0.7 0.6 Neut # (Auto) 3.6 4.6 Lymph # (Auto) 2.9 2.5 [place] # (Auto) 0.7 0.7 Eos # (Auto) 0.2 0.1 Baso # (Auto) 0.1 0.1 PT INR APTT Sodium 138 137 Potassium 4.1 3.6 Chloride 106 107 Carbon Dioxide 25 22 Anion Gap 11.1 11.6 BUN 8 L 9 Creatinine 1.10 1.00 Estimated Creat Clear 82 89 Estimated GFR 67 75 Est GFR ( Amer) 81 91 Glucose 99 D 149 H D Lactate Calcium 8.2 L 8.0 L Magnesium Total Bilirubin 1.4 H 1.3 AST 18 23 ALT 11 L 13 Alkaline Phosphatase 62 62 Troponin I < 0.01 < 0.01 Total Protein 6.1 L 6.0 L Albumin 3.5 3.5 D Globulin 2.6 2.5 Albumin/Globulin Ratio 1.3 1.4 Lipase HCV Ab TIFFANY w/Rflx PCR Qn HIV Ag/Ab Combo Qual 06/13/25 06/13/25 06/13/25 14:44 14:42 14:22 WBC 7.6 RBC 5.30 Hgb 15.3 Hct 43.1 MCV 81.3 MCH 28.9 MCHC 35.5 H RDW 14.3 Plt Count 262 MPV 8.6 Neut % (Auto) 50.2 Lymph % (Auto) 36.9 [place] % (Auto) 9.9 H Eos % (Auto) 1.7 Baso % (Auto) 0.8 Neut # (Auto) 3.8 Lymph # (Auto) 2.8 [place] # (Auto) 0.8 Eos # (Auto) 0.1 Baso # (Auto) 0.1 PT 11.9 INR 1.08 APTT 24.4 Sodium 137 Potassium 4.2 Chloride 104 Carbon Dioxide 26 Anion Gap 11.2 BUN 10 Creatinine 1.00 Estimated Creat Clear 90 Estimated GFR 75 Est GFR ( Amer) 91 Glucose 123 H Lactate 1.0 Calcium 9.8 Magnesium 1.6 Total Bilirubin 1.7 H AST 24 ALT 15 Alkaline Phosphatase 80 Troponin I < 0.01 Total Protein 8.0 Albumin 4.9 Globulin 3.1 Albumin/Globulin Ratio 1.6 Lipase 91 HCV Ab TIFFANY w/Rflx PCR Qn Negative HIV Ag/Ab Combo Qual Negative DS: Diagnosis Discharge Diagnosis (1) GI bleed: Status: Acute Code(s): K92.2 - Gastrointestinal hemorrhage, unspecified (2) Anemia: Status: Acute Code(s): D64.9 - Anemia, unspecified Discharge Plan Disposition Patient Disposition: Home, Self-Care Condition: Fair Follow up Plan Follow up with: Calos Jackson MD [Primary Care Provider, Medical] - 2 weeks Elijah Kearney II, MD [Staff Physician, Gastroenterology] - Enter time for follow up Referral Note: Needs EGD in the next 2 weeks Prescriptions/Medication Reconciliation: New pantoprazole [Protonix] 40 mg tablet,delayed release (DR/EC) 40 mg PO BID Qty: 60 0RF Continued lisinopril-hydrochlorothiazide 20-12.5 mg Tablet 1 tab PO DAILY sertraline [Zoloft] 100 mg Tablet 100 mg PO DAILY Problem Reconciliation Problems Reviewed?: Yes Patient Discharge Instructions ACTIVITY: Continue current activity DIET: advance to your usual diet Patient Instructions: Gastrointestinal Bleeding Print Language: Nicaraguan Providers Primary Care Provider: Calos Jackson Admit Provider: Calos Jackson Attending Provider: Calos Jackson
[2025-06-14] MEDS: PANTOPRAZOLE SODIUM 80 MG in 0.9 % SODIUM CHLORIDE 100 ML 100 MG IV (08:30)
--- NOTE | 2025-06-17 12:28 | SW/DCPLANNER ---
Spoke with patient on the phone. Patient stated that he is doing good. Patient stated that he is aware and will call and schedule his follow up appointments. Patient stated that he was able to get his new medicine picked up from clinic pharmacy. Patient stated that he has no concerns or questions at this time. Lucius Lamas
== END 2025-06-14 10:02 | disposition home or self-care (01) ==
LOC: ER 16:14 → 2ND 17:24
PROVIDERS: Nurse Practitioner; Admitting Provider Family Medicine; Emergency Provider Student in an Organized Health Care Education/Training Program; PCP Family Medicine; Visit Provider Family Medicine
DX: K92.2 Gastrointestinal hemorrhage, unspecified (principal); D64.9 Anemia, unspecified; I10 Essential (primary) hypertension; F41.9 Anxiety disorder, unspecified; Z79.899 Other long term (current) drug therapy
CPT/HCPCS: 36415; 74174; 80053; 83605; 83690; 83735; 84484; 85014; 85018; 85025; 85610; 85730; 86803; 87389; 93005; 96365; 96376; 99284; G0378; J2470; J7030; Q0162; Q9967

== ENCOUNTER 2025-06-19 09:50 | Day surgery (SDC) | payer MEDICARE, SELFPAY ==
[2025-06-19 09:58] VITALS: BMI 29.7
[2025-06-19] MEDS: LACTATED RINGERS 1000ML 1,000 ML 50 ML IV (10:00)
[2025-06-19 10:04] VITALS: BP 120/95; RESP 18; TEMP 36.1; O2SAT 96
--- NOTE | 2025-06-19 10:12 | P.PNANES_ITS ---
[facility] Disclaimer: The information contained in this section may have been updated after the patient was seen, as this information can be updated by other users. Medical History Tubular adenoma of colon Colon polyps Anxiety HTN (hypertension) Surgical History History of colonoscopy History of hernia repair Family History Other Family history of acute congestive heart failure Family history of diabetes mellitus Social History Smoking Status: Never smoker alcohol intake: never substance use type: denies use current occupational status: retired Travel in the last 8 weeks?: None caffeine: Yes Have you lived/traveled outside US in past 30 days?: No Contact w/someone who lives/traveled outside US past 30 days?: No Exposure to someone with infectious disease in past 14 days?: No Do you have a fever (greater than 100.4 F or 38 C)?: No Have you tested positive for COVID-19?: No Exposed to someone with COVID-19 in past 14 days?: No Do you have a sore throat?: No Do you have a cough?: No Do you have any weakness?: No Are you experiencing any nausea/vomitting?: No Do you have any diarrhea?: No Are you experiencing any unusual bleeding?: No Do you have any muscle aches/pain?: No Do you have any abdominal pain?: No Are you experiencing loss of taste or smell?: No [facility] Anesthesia Checklist Patient Identification Patient Identification: Arm Band and Verbal (Name & ) Structural Data Admitted From: Home Planned Operative Procedure/s: EGD Consent for Planned Operative Procedure(s) Verified: Yes Verified Documents: Surgical Consent and History and Physical NPO Status Verified Time NPO: 00:00 Additional verifications Anesthesia Reactions: No Previous Colonoscopy: Yes Airway Assessment Mallampati Score:: Class II Neurological Assessment Level of Consciousness: Awake, Alert and Appropriate Anesthesia Plan Anesthesia Risk discussed: Yes Anesthesia Plan: Verified ASA Class: II Anesthesia Type: MAC
--- NOTE | 2025-06-19 10:12 | EXP.HP ---
History of Present Illness *Admission Date: 06/19/25 *History of present illness: Mr. Garzon is a 64-year-old gentleman who is here for diagnostic EGD secondary to recent GI bleed and presentation to the emergency department on 06/13/2025. He had a CT scan which showed the possibility of an upper GI bleed. This showed extravasation in the distal duodenum and proximal jejunum. The patient's hemoglobin 15.3 and hematocrit 43.1 were normal. He had reported rectal pain and blood in his stool. The patient did have a colonoscopy on 05/30/2025 ([facility]) and had 3 benign polyps (tubular adenoma x 1, small leiomyoma x 1 and hyperplastic polyp x 1) which were removed. Preparation was suboptimal. He did have a prior colonoscopy with [facility] in November 2018 and had 3 polyps (tubular adenomas x 3) removed.. The examination is deemed medically necessary for diagnostic EGD. The patient has been seen, interviewed and examined prior to the procedure by both myself and the anesthesia provider. [facility] Disclaimer: The information contained in this section may have been updated after the patient was seen, as this information can be updated by other users. Medical History (Updated 06/19/25 @ 10:17 by Elijah Kearney II, MD) Tubular adenoma of colon Colon polyps Anxiety HTN (hypertension) Surgical History History of colonoscopy History of hernia repair Family History (Updated 06/19/25 @ 10:03 by [place] Elam RN) Other Family history of acute congestive heart failure Family history of diabetes mellitus Social History (Updated 06/19/25 @ 10:03 by Montana Elam RN) Smoking Status: Never smoker alcohol intake: never substance use type: denies use current occupational status: retired Travel in the last 8 weeks?: None caffeine: Yes Have you lived/traveled outside US in past 30 days?: No Contact w/someone who lives/traveled outside US past 30 days?: No Exposure to someone with infectious disease in past 14 days?: No Do you have a fever (greater than 100.4 F or 38 C)?: No Have you tested positive for COVID-19?: No Exposed to someone with COVID-19 in past 14 days?: No Do you have a sore throat?: No Do you have a cough?: No Do you have any weakness?: No Are you experiencing any nausea/vomitting?: No Do you have any diarrhea?: No Are you experiencing any unusual bleeding?: No Do you have any muscle aches/pain?: No Do you have any abdominal pain?: No Are you experiencing loss of taste or smell?: No Other Medical History Have you received the Flu Vaccine for this season: No Have you received the Pneumonia Vaccine: No Review of Systems Review of Systems Review of systems (narrative): Negative *Cardiovascular Comments: Negative *Gastrointestinal Comments: Negative *Genitourinary Comments: Negative *Musculoskeletal Comments: Negative *Neurologic Comments: Negative Meds Home Medications and Allergies Home Medications ?Medication ?Instructions ?Recorded ?Confirmed ?Type lisinopril 20 1 tab PO DAILY 05/30/25 06/19/25 History mg-hydrochlorothiazide 12.5 mg tablet sertraline 100 mg tablet (Zoloft) 100 mg PO DAILY 05/30/25 06/19/25 History pantoprazole 40 mg tablet,delayed 40 mg PO BID #60 tabs 06/14/25 06/19/25 Rx release (Protonix) New Prescriptions to Start Prescriptions: Allergies Allergy/AdvReac Type Severity Reaction Status Date / Time No Known Allergies Allergy Verified 06/19/25 10:01 Exam Data for Last 24 hours Vital signs and Labs for Last 24 Hours: Temp Resp BP Pulse Ox O2 Del Method 97.0 F L 18 120/95 H 96 Room Air 06/19/25 10:04 06/19/25 10:04 06/19/25 10:04 06/19/25 10:04 06/19/25 10:04 I & O for Last 24 hours: Intake & Output 06/16/25 06/17/25 06/18/25 06/19/25 23:59 23:59 23:59 23:59 Weight 190 lb *Routine HEENT Exam Head: Present normocephalic Eye: Present EOMI and PERRL ENT: Present mucous membranes moist *Routine Neck Exam Neck: Present supple *Routine Respiratory Exam Respiratory: Present CTA bilaterally *Routine Cardiovascular Exam Cardiovascular: Present RRR *Routine Abdominal Exam Abdominal: Present soft and normoactive bowel sounds; Absent tenderness *Routine Rectal Exam Rectal:: deferred *Routine Genitalia Exam Genitalia:: deferred *Routine Extremities Exam Extremities: Absent cyanosis, clubbing or edema *Routine Skin Exam Skin: Present warm; Absent rash *Routine Neurological Exam Neurological: Present alert and oriented X3 Assessment and Plan *Assessment and plan (1) GI bleed: Status: Acute Category: Medical Code(s): K92.2 - Gastrointestinal hemorrhage, unspecified (2) Abnormal CT scan, gastrointestinal tract: Status: Acute Category: Medical Code(s): R93.3 - Abnormal findings on diagnostic imaging of other parts of digestive tract Plan A/P: 1. Abnormal CAT scan showing extravasation of contrast in distal duodenum/jejunum and patient complaining of rectal bleeding is the preprocedural diagnosis. The patient will be anesthetized/sedated using MAC sedation. The patient has been seen and examined. Cardiac and lung assessment prior to the examination is stable. Proceed with planned EGD.
--- NOTE | 2025-06-19 10:17 | P.PCN_ITS ---
[facility] Procedure Note Date: 06/19/25 Time: 10:45 Procedure Note:: Upper Endoscopy Procedure Report: Esophagogastroduodenoscopy with cold biopsies Endoscopost: Elijah Kearney II, MD Referring Physician: Calos Jackson MD Date of Procedure: June 19, 2025 Equipment: Olympus GIF-1100 standard upper endoscope Sedation: MAC sedation Indications: Mr. Garzon is a 64-year-old gentleman who is here for diagnostic EGD secondary to recent GI bleed and presentation to the emergency department on 06/13/2025. He had a CT scan which showed the possibility of an upper GI bleed. This showed extravasation in the distal duodenum and proximal jejunum. The patient's initial hemoglobin 15.3 and hematocrit 43.1 were normal. His hemoglobin hematocrit dropped down to 12.3 and 35.3 on 06/14. The patient did report some tarry stools. He also has had some gassiness, bloating and indigestion. He has never had an upper endoscopy. He had reported rectal pain and blood in his stool. The patient did have a colonoscopy on 05/30/2025 ([facility]) and had 3 benign polyps (tubular adenoma x 1, small leiomyoma x 1 and hyperplastic polyp x 1) which were removed. Preparation was suboptimal. He did have a prior colonoscopy with [facility] in November 2018 and had 3 polyps (tubular adenomas x 3) removed. Procedure: Prior to the procedure, a history and physical exam was performed, and patient's medications and allergies were reviewed. The risks, benefits and alternatives of the sedation and procedure were discussed with the patient. All questions were answered and informed consent was obtained. The patient was brought to the procedure room. Patient identification and proposed procedure were verified by the physician and the nurse. The patient was placed in a left lateral decubitus position and the scope was passed under direct vision. Throughout the procedure, the patient's blood pressure, pulse, and oxygen saturations were monitored continuously. The upper GI endoscopy was accomplished without difficulty. The patient tolerated the procedure well. Findings: The scope was passed directly into the upper esophagus and advanced to the fourth portion of duodenum and proximal jejunum. This area was inspected carefully and there was no evidence of any ulceration or any recent GI bleeding. The post bulbar duodenum, ampulla and duodenal bulb were normal with normal mucosa and conniventes. A cold biopsy was taken from the second portion of the duodenum for the disaccharidase assay. The scope was withdrawn through a normal duodenal bulb and pylorus into the stomach. There was mild linear antral gastropathy. Cold biopsies were taken from the incisura. The body and fundus of the stomach were normal. Upon retroflexion there was a very small sliding 1 to 2 cm hiatal hernia. The scope was then withdrawn into the esophagus. There were 3 tongues of salmon-colored mucosa consistent with short segment Robbins's esophagus. NBI was utilized to take directed biopsies. There was no evident dysplasia. There was no evidence of reflux esophagitis and the remainder of the esophageal mucosa was normal. Impression: 1. Short segment Robbins's esophagus 2. Nonerosive GERD with very small sliding 1 to 2 cm hiatal hernia 3. Mild antral gastropathy Plan: I will follow-up the biopsies and disaccharidase assay. I would recommend continued pantoprazole treatment. I will discuss the findings with the patient and family.
[2025-06-19 10:52] VITALS: BP 114/62; PULSE 93; RESP 18; TEMP 36.3; O2SAT 93
[2025-06-19 11:02] VITALS: BP 117/68; PULSE 79; RESP 18; TEMP 36.3; O2SAT 99
[2025-06-19 11:12] VITALS: BP 125/71; PULSE 82; RESP 18; TEMP 36.3; O2SAT 94
[2025-06-19 11:22] VITALS: BP 116/67; PULSE 74; RESP 18; TEMP 36.3; O2SAT 94
[2025-06-23 16:15] LABS: Interpretation Notes (.); Lactase 9.51 (>/= 14.0); Maltase 175.79 (>/= 110.0); Palatinase 13.22 (>/= 8.5); Reference Notes (.); Sucrase 49.62 (>/= 25.0)
== END 2025-06-19 11:40 | disposition home or self-care (01) ==
PROVIDERS: PCP Family Medicine; Visit Provider Internal Medicine Gastroenterology
PROC: 0DJ08ZZ Inspection of Upper Intestinal Tract, Via Natural or Artificial Opening Endoscopic (ICD-10-PCS; CPT 43239; principal; 2025-06-19 11:00)
DX: K22.70 Barrett's esophagus without dysplasia (principal); K21.9 Gastro-esophageal reflux disease without esophagitis; K44.9 Diaphragmatic hernia without obstruction or gangrene; K31.9 Disease of stomach and duodenum, unspecified; K92.2 Gastrointestinal hemorrhage, unspecified; I10 Essential (primary) hypertension; F41.9 Anxiety disorder, unspecified; Z86.0101 Personal history of adenomatous and serrated colon polyps
CPT/HCPCS: 43239; 82657; 88305; J2003; J2704; J7120